=== PATIENT | male | born 1990 | race Caucasian/White ===

== ENCOUNTER 2023-03-08 21:36 | Emergency (ER) | payer SELFPAY ==
[2023-03-08] MEDS ORDERED: Lidocaine 1% with EPINEPHrine 1:100,000 50 ML MDV INJECT ONE (22:01)
[2023-03-08] MEDS ORDERED: Diphtheria,Pertussis(Acell),Tetanus Vaccine 0.5 ML Syringe IM ONE (22:20)
[2023-03-08] MEDS ORDERED: Bacitracin Oint 1 GM U/D Packet TOP ONE (22:21)
== END 2023-03-08 22:30 | disposition home or self-care (01) ==
LOC: JP.ED 21:36
DX: S60.456A Superficial foreign body of right little finger, initial encounter (principal); Z23 Encounter for immunization; W45.8XXA Other foreign body or object entering through skin, initial encounter
CPT/HCPCS: 90471; 90715; 99283-25